=== PATIENT | male | born 1980 | race Caucasian/White ===

== ENCOUNTER 2020-12-23 08:01 | Emergency (ER) | payer OTHER ==
[2020-12-23] MEDS ORDERED: Sodium Chloride 0.9% 1,000 ML IV ONE (08:39)
[2020-12-23] MEDS ORDERED: Ondansetron 4 MG/2 ML SDV IVPUSH ONE (08:39)
--- NOTE | 2020-12-23 08:54 | EDM.PDOC ---
ED HPI GENERAL MEDICAL PROBLEM - General Chief Complaint: Gastrointestinal Problem Stated Complaint: FEVER/CHILLS/VOMITING Time Seen by Provider: 12/23/20 08:25 Source of Information: Reports: Patient History Limitations: Reports: No Limitations - History of Present Illness INITIAL COMMENTS - FREE TEXT/NARRATIVE: he presents with onset of nausea vomiting and diarrhea with abdominal pain and right flank pain. Onset of symptoms was about 3 days ago. Does not recall eating any specific foods no recent travel no recent antibiotics. No bloody vomiting or bloody stool but has gotten to the point where he is not able to eat or drink anything it comes right back up. Has felt fevers and chills and occasional sweats. Not sleeping well does feel some mild headache and mild ac hiness. Denies any runny nose or sore throat no smell or taste problems. Denies any major coughing shortness of breath or breathing problems no chest pain. Right flank pain and back pain started several days before the onset of the symptoms have been seeing the chiropractor without a lot of relief. Pain is sharp when it occurs in the flank radiates around to the right hip area. No fall trauma or injury associated with the pain. Nothing really makes the pain better or worse nothing that is related urinating and no burning pain or blood in the urine just darker looking urine and less frequent urination. Patient does smoke cigarettes but otherwise no other history of any major medical problems and no history of any surgeries. Back Pain Score (Numeric/FACES): 9 - Related Data Allergies Allergy/AdvReac Type Severity Reaction Status Date / Time No Known Allergies Allergy Verified 12/23/20 08:15 Home Meds: Home Meds Ondansetron [Zofran ODT] 4 mg PO Q6H PRN #12 tab.dis 12/23/20 [Rx] Past Medical History Musculoskeletal History: Reports: Fracture - Infectious Disease History Infectious Disease History: Reports: Chicken Pox Social & Family History - Tobacco Use Tobacco Use Status *Q: Current Every Day Tobacco User Years of Tobacco use: 20 Packs/Tins Daily: 0.7 - Caffeine Use Caffeine Use: Reports: Soda - Recreational Drug Use Recreational Drug Use: No ED ROS GENERAL - Review of Systems Review Of Systems: See Below Constitutional: Reports: Fever, Chills, Malaise, Night Sweats HEENT: Denies: Rhinitis, Sinus Problem, Throat Pain Respiratory: Reports: No Symptoms. Denies: Shortness of Breath, Cough Cardiovascular: Reports: No Symptoms. Denies: Chest Pain, Lightheadedness Endocrine: Reports: No Symptoms GI/Abdominal: Reports: Abdominal Pain, Diarrhea, Decreased Appetite, Nausea, Vomiting. Denies: Black Stool, Bloody Stool, Hematemesis, Hematochezia, Melena : Reports: Flank Pain. Denies: Dysuria, Frequency Musculoskeletal: Reports: Muscle Pain Skin: Denies: Rash Neurological: Reports: Headache. Denies: Dizziness Psychiatric: Reports: No Symptoms ED EXAM, GI/ABD - Physical Exam Exam: See Below Exam Limited By: No Limitations General Appearance: Alert, WD/WN, Moderate Distress Eyes: Bilateral: EOMI Throat/Mouth: Other (Sticky mucous membranes) Head: Atraumatic Neck: Supple Respiratory/Chest: No Respiratory Distress, Lungs Clear, Normal Breath Sounds Cardiovascular: Normal Peripheral Pulses, Regular Rate, Rhythm, No Edema GI/Abdominal Exam: Normal Bowel Sounds, Soft, No Mass, Distended, Tender, Other (Right flank pain and some mild right lower quadrant tenderness). No: Guarding, Rigid, Rebound, Abnormal Bowel Sounds Extremities: No Pedal Edema Neurological: Alert, Oriented, CN II-XII Intact Psychiatric: Normal Affect Course - Vital Signs Text/Narrative:: Vomiting diarrhea rule out acute appendicitis pyelonephritis renal colic acute cholecystitis doubt acute coronary syndrome may be gastroenteritis colitis started with back pain will send for CT scan IV fluid resuscitation as he does appear dehydrated labs urinalysis ordered. Last Recorded V/S: Last Vital Signs Temp 98.5 F 12/23/20 10:32 Pulse 80 12/23/20 10:32 Resp 16 12/23/20 10:32 BP 146/100 H 12/23/20 10:32 Pulse Ox 96 12/23/20 10:32 - Orders/Labs/Meds Orders: Active Orders 24 hr Category Date Time Status Abdomen Ltd [US] Stat Exams 12/23/20 10:12 Taken UA W/MICROSCOPIC [URIN] Stat Lab 12/23/20 12:10 Results Labs: Laboratory Tests 12/23/20 12/23/20 12/23/20 Range/Units 08:30 08:30 12:10 WBC 7.20 (4.23-9.07) K/mm3 RBC 5.67 (4.63-6.08) M/mm3 Hgb 17.3 (13.7-17.5) gm/dl Hct 48.7 (40.1-51.0) % MCV 85.9 (79.0-92.2) fl MCH 30.5 (25.7-32.2) pg MCHC 35.5 (32.2-35.5) g/dl RDW Std Deviation 41.6 (35.1-43.9) fL Plt Count 137 L (163-337) K/mm3 MPV 10.5 (9.4-12.3) fl Neut % (Auto) 69.5 H (34.0-67.9) % Lymph % (Auto) 14.3 L (21.8-53.1) % [place] % (Auto) 15.7 H (5.3-12.2) % Eos % (Auto) 0.1 L (0.8-7.0) Baso % (Auto) 0.3 (0.1-1.2) % Neut # (Auto) 5.00 (1.78-5.38) K/mm3 Lymph # (Auto) 1.03 L (1.32-3.57) K/mm3 [place] # (Auto) 1.13 H (0.30-0.82) K/mm3 Eos # (Auto) 0.01 L (0.04-0.54) K/mm3 Baso # (Auto) 0.02 (0.01-0.08) K/mm3 Manual Slide Review Abnormal smear Sodium 138 (136-145) mEq/L Potassium 3.6 (3.5-5.1) mEq/L Chloride 101 (98-107) mEq/L Carbon Dioxide 24 (21-32) mEq/L Anion Gap 16.6 H (5-15) BUN 8 (7-18) mg/dL Creatinine 0.9 (0.7-1.3) mg/dL Est Cr Clr Drug Dosing 117.36 mL/min Estimated GFR (MDRD) > 60 (>60) mL/min BUN/Creatinine Ratio 8.9 L (14-18) Glucose 118 H (70-99) mg/dL Calcium 8.9 (8.5-10.1) mg/dL Total Bilirubin 0.6 (0.2-1.0) mg/dL AST 55 H (15-37) U/L ALT 102 H (16-63) U/L Alkaline Phosphatase 78 (46-116) U/L C-Reactive Protein 8.0 H* (<1.0) mg/dL Total Protein 7.5 (6.4-8.2) g/dl Albumin 3.8 (3.4-5.0) g/dl Globulin 3.7 gm/dL Albumin/Globulin Ratio 1.0 (1-2) Lipase 612 H (73-393) U/L Urine Color Yellow (Yellow) Urine Appearance Clear (Clear) Urine pH 6.0 (5.0-8.0) Ur Specific [place] > or = 1.030 (1.005-1.030) Urine Protein 1+ H (Negative) Urine Glucose (UA) Negative (Negative) Urine Ketones 2+ H (Negative) Urine Occult Blood Trace-lysed H (Negative) Urine Nitrite Negative (Negative) Urine Bilirubin 1+ H (Negative) Urine Urobilinogen 1.0 (0.2-1.0) Ur Leukocyte Esterase Negative (Negative) Meds: Medications Discontinued Medications Generic Name Dose Route Start Last Admin Trade Name Kenq PRN Reason Stop Dose Admin Sodium Chloride 1,000 mls @ 999 mls/hr 12/23/20 08:39 12/23/20 08:50 Normal Saline IV 12/23/20 09:39 999 mls/hr ONETIME ONE Administration Lactated Ringer's 1,000 mls @ 999 mls/hr 12/23/20 10:14 12/23/20 10:28 Ringers, Lactated IV 12/23/20 11:14 999 mls/hr .BOLUS ONE Administration Morphine Sulfate 4 mg 12/23/20 10:20 12/23/20 10:25 Morphine 4 Mg/Ml Syringe IVPUSH 12/23/20 10:21 4 mg ONETIME ONE Administration Ondansetron HCl 4 mg 12/23/20 08:39 12/23/20 08:48 Ondansetron 4 Mg/2 Ml Sdv IVPUSH 12/23/20 08:40 4 mg ONETIME ONE Administration - Radiology Interpretation CT Results Date: 12/23/20 - Re-Assessments/Exams Free Text/Narrative Re-Assessment/Exam: 12/23/20 10:10 CBC White count is normal however left shift noted, elevated liver function test with mild bump in his total bilirubin is alk phos is negative and lipase is greater than [address] abdomen pelvis with noncontrast scan shows normal appendix bilateral fat-containing hernias no signs of obstruction no renal calculi no adenopathy noted aorta is normal bladder does not contain any gallstones pancreas appears normal suspect some mild pancreatitis as part of the etiology however we need to understand why he has pancreatitis was sent for an ultrasound, continue IV fluids resuscitation and decide if patient will need hospitalization or will be able to be discharged home. 12/23/20 11:39 Clinically patient is feeling a lot better tolerating oral fluids. Await the ultrasound anticipate patient will be able to go home. 12/23/20 12:56 Ultrasound report comes back showing some fatty liver changes but otherwise no acute findings hard to see the pancreas based on gas overlying the pancreas on exam. Clinically patient however is doing a lot better. He is drinking fluids no abdominal pain still has some generalized headache but seems to be more hungry and no diarrhea vomiting or abdominal pain. Send patient home with Zofran, recommend that he needs to establish primary care and follow-up on his mild bump in his liver function tests lipase to make sure he does not have any worsening pancreatitis reviewed diet and again the return precautions. Departure - Departure Time of Disposition: 13:00 Disposition: Home, Self-Care 01 Condition: Good Clinical Impression: Vomiting, Diarrhea, Dehydration Pancreatitis, acute Qualifiers: Pancreatitis type: unspecified pancreatitis type Acute pancreatitis complication: unspecified Qualified Code(s): K85.90 - Acute pancreatitis without necrosis or infection, unspecified - Discharge Information Instructions: Nausea and Vomiting, Adult, Acute Pancreatitis, [id number], Dehydration, Adult, [id number], Food Choices to Help Relieve Diarrhea, Adult Referrals: PCP,None [Primary Care Provider] - Forms: ED Department Discharge Additional Instructions: Recommend establishing primary care. Benefit to get your general chemistries reevaluated including a liver function test, lipase which test your pancreas for inflammation. Will prescribe Zofran under the tongue every 6 hours as needed for nausea and vomiting. Start with broth soups crackers toast boiled eggs and advance diet as tolerated over the next 24 to 48 hours. Make sure to try to keep in plenty of water and fluids, Gatorade. Return to the emergency room with any increasing vomiting especially associated with increasing abdominal pain, persistent diarrhea, increasing headache, fevers, bloody vomiting bloody stool or worsening symptoms. Sepsis Event Note (ED) - Evaluation Sepsis Screening Result: No Definite Risk - Focused Exam Vital Signs: Vital Signs Temp Pulse Resp BP Pulse Ox 12/23/20 10:32 98.5 F 80 16 146/100 H 96 12/23/20 08:10 97.2 F 90 16 155/106 H 100 - My Orders Last 24 Hours: My Active Orders 12/23/20 10:12 Abdomen Ltd [US] Stat 12/23/20 12:10 UA W/MICROSCOPIC [URIN] Stat - Assessment/Plan Last 24 Hours: My Active Orders 12/23/20 10:12 Abdomen Ltd [US] Stat 12/23/20 12:10 UA W/MICROSCOPIC [URIN] Stat
--- NOTE | 2020-12-23 09:39 | CT ---
CT abdomen and pelvis Technique: Multiple axial sections were obtained from above the dome of the diaphragm inferiorly through the pubic symphysis. Intravenous contrast and oral contrast was not utilized. Study was performed as a ureteral stone protocol. Findings: Kidneys show no abnormal calcifications. No ureteral dilatation or ureteral calculus is seen. Slight atelectasis is noted within the right lung base. Irregular fatty infiltration is seen within the liver. Gallbladder contains no calcified gallstones. Spleen is within normal limits. Adrenal glands show no nodule. Pancreas appears within normal limits. Abdominal aorta shows no aneurysm. No retroperitoneal adenopathy is seen. No mesenteric abnormalities are seen. Appendix is seen which is normal. Scattered diverticuli are seen within the descending and sigmoid regions. No inflammatory change is seen to indicate diverticulitis. No pelvic mass or adenopathy is seen. Bilateral fat-containing inguinal hernias are noted. Sigmoid colon slightly projects into the left inguinal hernia. Bone window settings were reviewed which appear within normal limits for the patient's age. Impression: 1. Bilateral fat-containing inguinal hernias with sigmoid colon slightly projecting into the origin of the left inguinal hernia. 2. No renal calculi, ureteral dilatation or ureteral stone is seen. 3. Fatty infiltration within the liver. 4. Other nonacute findings as noted above. Diagnostic code #3
[2020-12-23] MEDS ORDERED: Lactated Ringers 1,000 ML IV ONE (10:14)
[2020-12-23] MEDS ORDERED: Morphine 4 MG/ML Syringe IVPUSH ONE (10:20)
--- NOTE | 2020-12-23 19:31 | US ---
Limited abdominal ultrasound: Comparison: No prior ultrasound exam, previous CT abdomen and pelvis exam performed earlier on the same date. Findings: Liver shows fatty infiltration. No focal abnormality is appreciated. Gallbladder contains no shadowing gallstones. No gallbladder wall thickening or biliary duct dilatation is seen. Pancreas is obscured by bowel gas. Inferior vena cava is patent. Main portal vein shows normal hepatopedal flow. Right kidney shows no hydronephrosis or mass. Right kidney has a length of 12.2 cm. Proximal aorta shows no aneurysm. Impression: 1. Fatty infiltration within the liver. 2. Nonvisualized pancreas due to bowel gas. 3. Other portions of the right upper quadrant abdominal ultrasound appear within normal limits. Diagnostic code #2 I agree with preliminary report from [facility] finalized on 12/23/20, 1:45 PM CDT, code 1
== END 2020-12-23 13:19 | disposition home or self-care (01) ==
LOC: JD.ED 08:01
DX: K85.90 Acute pancreatitis without necrosis or infection, unspecified (principal); E86.0 Dehydration; Z72.0 Tobacco use
CPT/HCPCS: 36415; 74176; 76705; 80053; 81001; 83690; 85025; 86140; 96374; 96375; 99284; J2270; J2405; J7030; J7120